=== PATIENT | female | born 1950 | race Caucasian/White ===

== ENCOUNTER 2018-03-06 03:50 | Emergency (ER) | payer MEDICARE, OTHER ==
[~2018-03-06] VITALS: Ht 162.6 cm; Wt 45.4 kg
[2018-03-06 03:59] VITALS: BP 139/77
[2018-03-06] MEDS ORDERED: KETOROLAC 30 MG/ML VIAL. IM ONE (04:30)
[2018-03-06] MEDS ORDERED: DEXAMETHASONE SOD PHOS 20 MG/5 ML VIAL. IM ONE (04:30)
[2018-03-06] MEDS ORDERED: METH4TAB2 PO (04:37)
[2018-03-06] MEDS ORDERED: DICL50TA4 PO (04:37)
--- NOTE | 2018-03-06 04:37 | PHYS DOC ---
Adult General Chief Complaint Chief Complaint: WRIST PAIN [facility] HPI Patient is a 67-year-old female who presents with complaint of pain in her left wrist and left elbow that started yesterday afternoon. Patient states that throughout the evening pain is been getting worse. She denies any recent injuries. She does indicate that she does a lot of repetitive motion with both arms stating that she uses a computer a lot. She describes pain as a deep ache. She states that initially the pain was in her left wrist and then progressively is gone into her left elbow. She denies any numbness or tingling. She rates pain at a 7 out of 10. Patient states that pain is worsened with movement of elbow and wrist. Review of Systems Review of Systems Constitutional: Denies fever or chills [] Respiratory: Denies cough or shortness of breath [] Cardiovascular: No additional information not addressed in HPI [] Musculoskeletal: Complains of left elbow and wrist pain [] Integument: Denies rash or skin lesions [] Current Medications Current Medications Current Medications Medications (Trade) Dose Ordered Sig/Emily Start Time Stop Time Status Last Admin Dose Admin Dexamethasone Sodium Phosphate (Decadron) 10 mg 1X ONCE 03/06/18 04:30 03/06/18 04:31 UNV Ketorolac Tromethamine (Toradol 30mg Vial) 30 mg 1X ONCE 03/06/18 04:30 03/06/18 04:31 UNV Allergies Allergies Allergies Coded Allergies Type Severity Reaction Last Updated Verified No Known Drug Allergies 03/06/18 No Physical Exam Physical Exam Constitutional: Well developed, well nourished, no acute distress, non-toxic appearance. [] Cardiovascular: Regular rate and rhythm [] Lungs & Thorax: Bilateral breath sounds clear to auscultation [] Skin: Warm, dry, no erythema, no rash. [] Extremities: Left elbow demonstrates tenderness over the medial epicondyle. There is also tenderness to palpation along the volar and dorsal aspect of the wrist with pain worsened with flexion and extension. No deformity is noted. [] Neurologic: Alert and oriented X 3, normal sensory function, no focal deficits noted. [] EKG EKG [] Radiology/Procedures Radiology/Procedures [] Course & Med Decision Making Course & Med Decision Making Pertinent Labs and Imaging studies reviewed. (See chart for details) [] Dragon Disclaimer Dragon Disclaimer This electronic medical record was generated, in whole or in part, using a voice recognition dictation system. Departure Departure Impression: Primary Impression: Tendinitis Disposition: 01 HOME, SELF-CARE Condition: STABLE Patient Instructions: Tendinitis Scripts Diclofenac Sodium (DICLOFENAC SODIUM) 50 Mg Tablet.dr 1 TAB PO BID PRN for PAIN, #20 TAB Prov: RAQUEL CARDONA Jr. DO 03/06/18 Methylprednisolone (MEDROL) 4 Mg Tab.ds.pk 1 PKG PO UD, #1 PKG Prov: RAQUEL CARDONA Jr. DO 03/06/18 RAQUEL CARDONA Jr. DO Mar 06, 2018 04:37
[2018-03-06] MEDS ORDERED: KETO120S5 TP (04:48)
== END 2018-03-06 04:49 | disposition home or self-care (01) ==
LOC: ER 03:50
DX: M77.8 Other enthesopathies, not elsewhere classified (principal); B35.0 Tinea barbae and tinea capitis
CPT/HCPCS: 96372; 99283; J1100; J1885